=== PATIENT | male | born 1965 | race African-American/Black ===

== ENCOUNTER 2020-05-02 10:28 | Emergency (ER) | payer MEDICAID ==
[~2020-05-02] VITALS: Ht 182.9 cm; Wt 73.0 kg
[2020-05-02 11:15] LABS: BASOPHILS % 1.1 % (0.0-2.0); EOSINOPHILS % 1.5 % (0.0-5.0); HEMATOCRIT. 49.5 % (42.0-52.0); HEMOGLOBIN. 16.1 g/dL (14.0-18.0); LYMPHOCYTES % 38.4 % (20.0-50.0); MEAN CORPUSCULAR HEMOGLOBIN 26.9 pg (28.0-32.0); MEAN PLATELET VOLUME 7.9 fl (7.4-10.4); MONOCYTES % 10.5 % (2.0-8.0); NEUTROPHILS % 48.5 % (40.0-76.0); PLATELET 249 x1000/uL (130-400); RED BLOOD CELL COUNT 5.96 mill/uL (4.7-6.1); RED CELL DISTRIBUTION WIDTH 14.2 % (11.6-14.6)
[2020-05-02 11:27] LABS: CHLORIDE 99 mEq/L (98-107)
[2020-05-02 11:31] LABS: ETHANOL BLOOD < 10 mg/dL
[2020-05-02] MEDS ORDERED: INSULIN REGULAR (HUMULIN R) 300UNITS/3ML VIAL SUBCUT ONE (12:00)
[2020-05-02 12:37] VITALS: BP 154/86
== END 2020-05-02 13:38 | disposition home or self-care (01) ==
LOC: ER 10:39
DX: F41.9 Anxiety disorder, unspecified (principal); R00.2 Palpitations; E11.9 Type 2 diabetes mellitus without complications; I10 Essential (primary) hypertension; Z79.4 Long term (current) use of insulin
CPT/HCPCS: 36415; 80053; 80320; 82962; 84443; 84484; 85025; 93005; 96372; 99284; J1815; G0480